=== PATIENT | female | born 1975 | race African-American/Black ===

== ENCOUNTER 2021-01-27 17:08 | Emergency (ER) | payer SELFPAY ==
[~2021-01-27] VITALS: Ht 147.3 cm; Wt 59.1 kg
[2021-01-27 17:20] VITALS: BP 158/102
== END 2021-01-27 21:41 | disposition home or self-care (01) ==
LOC: EMS 17:23
DX: G47.00 Insomnia, unspecified (principal); I10 Essential (primary) hypertension; Z53.21 Procedure and treatment not carried out due to patient leaving prior to being seen by health care provider
CPT/HCPCS: 99281; Z7502